=== PATIENT | male | born 1970 | race Caucasian/White ===

== ENCOUNTER 2016-12-23 21:18 | Emergency (ER) | payer OTHER ==
[~2016-12-23] VITALS: Ht 188 cm; Wt 85.2 kg
[2016-12-23 21:18] VITALS: BP 143/104
[~2016-12-23 21:18] MED LIST: HYDR1TAB10 PO; RANI150T6 PO
--- NOTE | 2016-12-23 22:08 | PHYS DOC ---
General Chief Complaint: ABDOMINAL PAIN Stated Complaint: PAIN UNDER STERNUM Time Seen by MD: 22:06 Source: patient Exam Limitations: no limitations Problems: History of Present Illness Initial Comments Pt is 46/M to ED c/o abdominal pain. Pt states he is here for exacerbation of chronic condition. States he has had this epigastric discomfort described as burning intermittently in past and has been extensively worked up. Sx have been localized to his GI tract, pt saw Dr Peralta as outpatient and Dr Peralta ordered upper GI study. Pt states this study has been scheduled twice in past but each time pt has fallen ill and has not made those appointments. Pt states he had some spicy pasta yesterday, since then his burning sx have worsened from baseline currently 04/18. +belching/metallic taste, no n/v/d no unexplained weight loss or difficulty swallowing. Pt taking pepcid, not following GERD precautions. Timing/Duration: 24 hours Severity: severe Modifying Factors: worse with eating Associated Symptoms: other Allergies: Coded Allergies: No Known Drug Allergies (Unverified , 06/25/14) Past Medical History Medical History: other (anxiety, GERD, HLP, HTN) Surgical History: noncontributory (cervical fusion), other Social History Smoker: quit less than 1 year Alcohol: none Drugs: marijuana Review of Systems Constitutional: denies chills, denies fever, denies malaise Respiratory: denies cough, denies shortness of breath Cardiovascular: denies chest pain, denies palpitations, denies syncope Gastrointestinal: see HPI Genitourinary: denies dysuria, denies frequency, denies hematuria Musculoskeletal: denies back pain, denies joint swelling, denies neck pain Psychiatric/Neurological: denies headache, denies numbness, denies paresthesia Hematologic/Lymphatic: denies blood clots, denies easy bleeding, denies easy bruising Physical Exam General Appearance: WD/WN, no apparent distress Eyes: bilateral eye EOMI, bilateral eye PERRL, bilateral eye normal inspection Ear, Nose, Throat: hearing grossly normal, normal ENT inspection, normal pharynx Neck: non-tender, supple Respiratory: normal breath sounds, no respiratory distress Cardiovascular: normal peripheral pulses, regular rate, rhythm Gastrointestinal: normal bowel sounds, soft (ND, mild epigastric TTP no r/g/ mass, neg mcburney/carrion) Rectal: deferred Back: no CVA tenderness, no vertebral tenderness Extremities: non-tender, normal inspection Neurologic/Psychiatric: management trainee II-XII nml as tested, no motor/sensory deficits, alert, normal mood/affect, oriented x 3 Skin: normal color, warm/dry Orders, Labs, Meds EKG: NSR 74 bpm, no STEMI GI cocktail with improvement sx. I discussed need for adherence with Dr Peralta instructions. Continue current meds. Pt expressed agreement/understanding with treatment plan. Departure Time of Disposition: 22:06 Disposition: 01 HOME, SELF-CARE Diagnosis: GERD gastritis Condition: GOOD Patient Instructions: Diet for Gastroesophageal Reflux Disease, Adult, Easy-to- Read, Gastroesophageal Reflux Disease, Adult, [id number] Additional Instructions: Continue GERD precautions (see handouts). Continue pepcid. Schedule upper GI per Dr Peralta, call tomorrow to schedule. Follow up with your doctor next week. Return to ED with new or changing symptoms. HARINDER [place] DO Dec 23, 2016 22:08
[2016-12-23] MEDS ORDERED: SUCR1TAB29 PO (22:09)
[2016-12-23] MEDS ORDERED: LIDO:MAALOX 1:1 20 ML SINGLE DOSE PO ONE (22:30)
--- NOTE | 2016-12-24 00:48 | EKG ---
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
== END 2016-12-23 22:21 | disposition home or self-care (01) ==
LOC: ER 21:18
DX: K21.9 Gastro-esophageal reflux disease without esophagitis (principal); K29.70 Gastritis, unspecified, without bleeding; E78.00 Pure hypercholesterolemia, unspecified; I10 Essential (primary) hypertension; F12.10 Cannabis abuse, uncomplicated; Z87.891 Personal history of nicotine dependence
CPT/HCPCS: 93005; 99283-25

== ENCOUNTER 2016-12-28 11:08 | Emergency (ER) | payer OTHER ==
[~2016-12-28 11:08] MED LIST changes: +SUCR1TAB29 PO
[2016-12-28 11:15] VITALS: BP 141/101
--- NOTE | 2016-12-28 11:49 | ED.ADGEN ---
Past History Past Medical History: GERD, High Cholesterol, Hypertension Past Surgical History: Other Smoking: Cigarettes, Quit Less Than 1 Year Alcohol Use: Occasionally Drug Use: None Adult General Chief Complaint Chief Complaint epigastric pain HPI HPI Patient is a 46 year old male who presents with epigastric pain since yesterday evening, slow in onset, reoccurring symptoms for last several days. Pt has been battling these symptoms for a long period of time, with EGD planned multiple times but frequently cancelled by pt because he "doesn't like doctors" . Pt has EGD scheduled for today at 4:30, but pt thought maybe he could just come to the ED to have this performed. He has not attempted any symptom controlling medication. He did take his Lisinopril today. No nausea or vomiting, no change in bowel movements. + flatus. No bloody stools reported. Pt reports GI cocktail normally works for his pain. Review of Systems Review of Systems Constitutional: Denies fever or chills [] Eyes: Denies change in visual acuity, redness, or eye pain [] HENT: Denies nasal congestion or sore throat [] Respiratory: Denies cough or shortness of breath [] Cardiovascular: denies chest pain GI: per hpi : Denies dysuria or hematuria [] Musculoskeletal: Denies back pain or joint pain [] Integument: Denies rash or skin lesions [] Neurologic: Denies headache, focal weakness or sensory changes [] Endocrine: Denies polyuria or polydipsia [] Current Medications Current Medications Current Medications Medications (Trade) Dose Ordered Sig/Laquita Start Time Stop Time Status Last Admin Dose Admin Multi-Ingredient Mouthwash/Gargle (Gi Cocktail) 20 ml 1X ONCE 12/28/16 12:00 12/28/16 12:01 12/28/16 11:37 20 ML Allergies Allergies Allergies Coded Allergies Type Severity Reaction Last Updated Verified No Known Drug Allergies 06/25/14 No Physical Exam Physical Exam Constitutional: Well developed, well nourished, no acute distress, non-toxic appearance. [] HENT: Normocephalic, atraumatic, bilateral external ears normal, oropharynx moist, no oral exudates, nose normal. [] Eyes: PERRLA, EOMI, conjunctiva normal, no discharge. [] Neck: Normal range of motion, no tenderness, supple, no stridor. [] Cardiovascular:Heart rate regular with regular rhythm, no murmur [] Lungs & Thorax: Bilateral breath sounds clear to auscultation, no wheeze, crackles or rhonchi Abdomen: Bowel sounds normal, soft, no tenderness, no masses, no pulsatile masses, no guarding or peritoneal signs, nondistended. Skin: Warm, dry, no erythema, no rash. [] Back: No tenderness, no CVA tenderness. [] Extremities: No tenderness, no cyanosis, no clubbing, ROM intact, no edema. [] Neurologic: Alert and oriented X 3, normal motor function, normal sensory function, no focal deficits noted. [] Psychologic: Affect normal, judgement normal, mood normal. [] Current Patient Data Vital Signs Vital Signs Date Time Temp Pulse Resp B/P Pulse Ox O2 Delivery O2 Flow Rate FiO2 12/28/16 11:15 97.7 80 20 95 Room Air EKG EKG [] Radiology/Procedures Radiology/Procedures [] Course & Med Decision Making Course & Med Decision Making Pertinent Labs and Imaging studies reviewed. (See chart for details) pt given a GI cocktail. He does not have signs/sx of perforation, no ttp over pancreas or liver/GB. I encouraged pt to keep his appointment this afternoon. Final Impression Final Impression GERD[] Problems: Dragon Disclaimer Dragon Disclaimer This electronic medical record was generated, in whole or in part, using a voice recognition dictation system. MARIETTA IBARRA MD Dec 28, 2016 11:49
[2016-12-28] MEDS ORDERED: LIDO:MAALOX 1:1 20 ML SINGLE DOSE PO ONE (12:00)
== END 2016-12-28 11:45 | disposition home or self-care (01) ==
LOC: ER 11:08
DX: K21.9 Gastro-esophageal reflux disease without esophagitis (principal); E78.00 Pure hypercholesterolemia, unspecified; I10 Essential (primary) hypertension; F17.210 Nicotine dependence, cigarettes, uncomplicated
CPT/HCPCS: 99282

== ENCOUNTER 2017-02-17 19:37 | Emergency (ER) | payer SELFPAY ==
[~2017-02-17] VITALS: Ht 188 cm; Wt 87.2 kg
[2017-02-17 19:37] VITALS: BP 150/91
[~2017-02-17 19:37] MED LIST changes: -SUCR1TAB29 PO; +SUCR1TAB35 PO
[2017-02-17] MEDS ORDERED: LIDOCAINE 1% Multi-Dose 20 ML VIAL. ONE (19:49)
[2017-02-17] MEDS ORDERED: IBUP600T16 PO (20:07)
[2017-02-17] MEDS ORDERED: HYDR-2678 PO (20:07)
[2017-02-17] MEDS ORDERED: SULF1TAB24 PO (20:07)
--- NOTE | 2017-02-17 20:07 | PHYS DOC ---
Past History Past Medical History: GERD, High Cholesterol, Hypertension Past Surgical History: Other Smoking: Cigarettes, Quit Less Than 1 Year Alcohol Use: Occasionally Drug Use: None Adult General Chief Complaint Chief Complaint: ABSCESS HPI HPI Patient is a 46-year-old gentleman who presents here today secondary to an abscess that he noted on his back. Patient reports that the abscesses been there for greater than one week and has been getting bigger and more tender. Patient denies any other past medical history. Patient denies any history of hypertension diabetes liver longer kidney pals. Patient denies any alcohol or drugs. Patient has any fevers shakes chills nausea vomiting diarrhea chest pain or shortness of breath. Patient reports initial onset of myalgias and malaise earlier today. Patient's physical exam was significant for a large abscess to his mid scapular region and his back. Approximately at the level of T4-T5 and the abscess was approximately 6 x 6 cm with a purulent head. It was tender to palpation. There is some mild erythema. There is some mild warmth. Patient is nontoxic appearing. Patient is alert awake oriented 3 and in good spirits. Patient's lungs were clear without any wheezing rales or rhonchi. Indication: Skin abscess. Procedure: The patient was positioned appropriately and the skin over the incision site was Betadine. Local anesthesia was 1% lidocaine 3 mL.. An incision was then made over the abscess to his mid scapular region. And copious amounts of purulent sebaceous cheesy material was expressed. Loculations were broken. The drainage cavity was then packed with 1 inch gauze. The patients tetanus status up-to-date. The patient tolerated the procedure well. Complications: None Assessment and plan: This is a 46-year-old gentleman who presents to the ER secondary to a skin abscess. Abscess was draining in the ER. The patient was given adequate analgesia during the procedure. The patient was discharged home on Bactrim DS, Motrin, Lortab. Patient was instructed to follow-up with his doctor in 2 days for packing change. If he was unable see his doctor in 2 days he was instructed to return to the ER for further evaluation of the packing and for possible removal and repacking. Review of Systems Review of Systems Constitutional: Denies fever or chills [] Eyes: Denies change in visual acuity, redness, or eye pain [] HENT: Denies nasal congestion or sore throat [] All other review systems are negative except as documented in the history of present illness portion. Current Medications Current Medications Current Medications Medications (Trade) Dose Ordered Sig/Laquita Start Time Stop Time Status Last Admin Dose Admin Lidocaine HCl 20 ml STK-MED ONCE 02/17/17 19:49 02/17/17 19:50 DC Allergies Allergies Allergies Coded Allergies Type Severity Reaction Last Updated Verified No Known Drug Allergies 06/25/14 No Physical Exam Physical Exam Constitutional: Well developed, well nourished, no acute distress, non-toxic appearance. [] HENT: Normocephalic, atraumatic, bilateral external ears normal, oropharynx moist, no oral exudates, nose normal. [] Eyes: PERRLA, EOMI, conjunctiva normal, no discharge. [] Neck: Normal range of motion, no tenderness, supple, no stridor. [] Cardiovascular:Heart rate regular rhythm, Lungs & Thorax: Bilateral breath sounds clear to auscultation [] Abdomen: Bowel sounds normal, soft, no tenderness, no masses, no pulsatile masses. [] Skin: Warm, dry, no erythema, no rash. [] Back: See above. Extremities: No tenderness, no cyanosis, no clubbing, ROM intact, no edema. [] Neurologic: Alert and oriented X 3, normal motor function, normal sensory function, no focal deficits noted. [] Psychologic: Affect normal, judgement normal, mood normal. [] EKG EKG [] Radiology/Procedures Radiology/Procedures [] Course & Med Decision Making Course & Med Decision Making Pertinent Labs and Imaging studies reviewed. (See chart for details) [] Dragon Disclaimer Dragon Disclaimer This chart was dictated in whole or in part using Voice Recognition software in a busy, high-work load, and often noisy Emergency Department environment. It may contain unintended and wholly unrecognized errors or omissions. Departure Departure: Impression: Primary Impression: Skin abscess Disposition: 01 HOME, SELF-CARE Condition: IMPROVED Referrals: LUI JAIN (PCP) Patient Instructions: Abscess, Incision and Drainage, Care After Additional Instructions: Please follow up with her family doctor or return to the ER in 2 days for a packing change. Return to the ER if they have any new or concerning complaints. Scripts Sulfamethoxazole/Trimethoprim (BACTRIM DS TABLET) 1 Each Tablet 2 TAB PO BID, #40 TAB Prov: ISACC RIDDLE MD 02/17/17 Hydrocodone/Acetaminophen (Lortab 5-325 mg Tablet) 1 Each Tablet 1 TAB PO PRN Q6HRS Y for PAIN, #12 TAB 0 Refills Prov: ISACC RIDDLE MD 02/17/17 Ibuprofen (IBUPROFEN) 600 Mg Tablet 600 MG PO QID Y for PAIN, #20 Prov: ISACC RIDDLE MD 02/17/17 Problem Qualifiers Primary Impression: Skin abscess Site of cutaneous abscess: other site Qualified Codes: L02.818 - Cutaneous abscess of other sites ISACC RIDDLE MD February 17, 2017 20:07
[2017-02-17] MEDS ORDERED: HYDROcodone/APAP 5/325MG 1 TAB TABLET PO ONE (20:30)
[2017-02-17] MEDS ORDERED: LIDOCAINE 1% Multi-Dose 20 ML VIAL. IJ ONE (20:30)
[2017-02-17] MEDS ORDERED: SMZ/TMP 800/160MG TABLET. PO ONE (20:30)
[2017-02-17] MEDS ORDERED: IBUPROFEN 600 MG TABLET. PO ONE (20:30)
== END 2017-02-17 20:12 | disposition home or self-care (01) ==
LOC: ER 19:37
DX: L02.212 Cutaneous abscess of back [any part, except buttock and flank] (principal); K21.9 Gastro-esophageal reflux disease without esophagitis; I10 Essential (primary) hypertension; E78.00 Pure hypercholesterolemia, unspecified; Z87.891 Personal history of nicotine dependence
CPT/HCPCS: 99284-25

== ENCOUNTER 2017-02-28 09:44 | Emergency (ER) | payer OTHER ==
[~2017-02-28] VITALS: Ht 188 cm; Wt 87.2 kg
[~2017-02-28 09:44] MED LIST changes: +HYDR-2678 PO; +IBUP600T16 PO; +SULF1TAB24 PO
[2017-02-28 10:07] VITALS: BP 167/91
--- NOTE | 2017-03-01 08:52 | PHYS DOC ---
Past History Past Medical History: Anxiety, GERD, High Cholesterol, Hypertension Past Surgical History: Other Smoking: Cigarettes, Quit Less Than 1 Year Alcohol Use: Occasionally Drug Use: Marijuana Adult General Chief Complaint Chief Complaint: SHORTNESS OF BREATH [facility] LATE ENTRY 0846 03/01/17 This 46-year-old man presents with feeling of breathlessness he has been very anxious about a lot of things he states he's had intermittent short of breath with_on for the past 2 days without cough or fever. He states that he is usually at rest when the episodes began he does not smoke cigarettes he does smoke marijuana occasionally and denies any pain he was evaluated about 2 weeks ago for an abscess on his back which is healing well and he really wanted to check on that but then thought he would talk to us about his feeling breathless at times. Review of Systems Review of Systems late entry 0803/01/17 Constitutional: Denies fever or chills [] Eyes: Denies change in visual acuity, redness, or eye pain [] HENT: Denies nasal congestion or sore throat [] Respiratory: Denies cough or shortness of breath [] Cardiovascular: No additional information not addressed in HPI [] GI: Denies abdominal pain, nausea, vomiting, bloody stools or diarrhea [] : Denies dysuria or hematuria [] Musculoskeletal: Denies back pain or joint pain [] Integument: Denies rash or skin lesions [] Neurologic: Denies headache, focal weakness or sensory changes [] Endocrine: Denies polyuria or polydipsia [] Allergies Allergies Allergies Coded Allergies Type Severity Reaction Last Updated Verified No Known Drug Allergies 06/25/14 No Physical Exam Physical Exam Late entry 0847 03/01/17 Constitutional: Well developed, well nourished, no acute distress, non-toxic appearance. He does seem somewhat anxious HENT: Normocephalic, atraumatic, bilateral external ears normal, oropharynx moist, no oral exudates, nose normal. [] Eyes: PERRLA, EOMI, conjunctiva normal, no discharge. [] Neck: Normal range of motion, no tenderness, supple, no stridor. [] Cardiovascular:Heart rate regular rhythm, no murmur [] Lungs & Thorax: Bilateral breath sounds clear to auscultation lungs are entirely clear to auscultation Abdomen: Bowel sounds normal, soft, no tenderness, no masses, no pulsatile masses. [] Skin: Warm, dry, no erythema, no rash. [] Back: No tenderness, no CVA tenderness. [] Extremities: No tenderness, no cyanosis, no clubbing, ROM intact, no edema. [] Neurologic: Alert and oriented X 3, normal motor function, normal sensory function, no focal deficits noted. [] Psychologic: Affect normal, judgement normal, mood normal. He does seem anxious Current Patient Data Vital Signs Vital Signs Date Time Temp Pulse Resp B/P (MAP) Pulse Ox O2 Delivery O2 Flow Rate FiO2 02/28/17 10:07 97.9 74 16 98 EKG EKG [] Radiology/Procedures Radiology/Procedures [] Impressions: Late entry 0849 03/01/17 Anxiety Course & Med Decision Making Course & Med Decision Making Pertinent Labs and Imaging studies reviewed. (See chart for details) late entry 0849 03/01/17 I talked with this patient at length regarding his history and physical which were all entirely normal I explained to him that I felt this was anxiety anxiety and I felt that everything looked fine on examination and I reassured him. The patient seemed very relaxed and understanding [] Dragon Disclaimer Dragon Disclaimer This chart was dictated in whole or in part using Voice Recognition software in a busy, high-work load, and often noisy Emergency Department environment. It may contain unintended and wholly unrecognized errors or omissions. Departure Departure: Impression: Primary Impression: Anxiety Disposition: 01 HOME, SELF-CARE Condition: IMPROVED Patient Instructions: Anxiety and Panic Attacks, [id number] LEIGH ANN JORGE MD March 01, 2017 08:51
== END 2017-02-28 10:43 | disposition home or self-care (01) ==
LOC: ER 09:44
DX: F41.9 Anxiety disorder, unspecified (principal); I10 Essential (primary) hypertension; E78.00 Pure hypercholesterolemia, unspecified; K21.9 Gastro-esophageal reflux disease without esophagitis; F17.210 Nicotine dependence, cigarettes, uncomplicated; F12.10 Cannabis abuse, uncomplicated
CPT/HCPCS: 99281; 99284

== ENCOUNTER 2017-07-04 17:49 | Emergency (ER) | payer SELFPAY ==
[2017-07-04] MEDS ORDERED: KETOROLAC 30 MG/ML VIAL. IM ONE (19:10)
[2017-07-04] MEDS ORDERED: amLODIPine BESYLATE 5 MG TABLET PO ONE (19:10)
[2017-07-04] MEDS ORDERED: AMLO10TA4 PO (19:23)
[2017-07-04] MEDS ORDERED: NAPR500T3 PO (19:23)
--- NOTE | 2017-07-04 19:23 | PHYS DOC ---
Past History Past Medical History: Anxiety, GERD, High Cholesterol, Hypertension Past Surgical History: Other Smoking: Cigarettes, Quit Less Than 1 Year Alcohol Use: Occasionally Drug Use: Marijuana Adult General Chief Complaint Chief Complaint: MULTIPLE COMPLAINTS HPI HPI Patient is a 46-year-old gentleman with multiple medical problems who presents to the ER today complaining of left ear, neck, shoulder pain for approximately 10 years. Patient reports that he used to be on heavy narcotic medications that he is no longer requiring to take. Patient denies any fevers shakes chills nausea vomiting diarrhea chest pain shortness of breath cough cold rhinorrhea. Patient denies any other new symptomatology. Patient reports that this is a chronic condition for him. He is here because today his blood pressure was elevated at home and his mother and sister wants to study come here to get assistance with his hypertension. It appears that the true reason the patient is here for his chronic pain but for assistance with his elevated blood pressure. Patient reports that he has been noncompliant with his blood pressure medication for approximately 3 months now secondary to insurance issues. Patient denies any headaches, chest pain, shortness of breath, double vision, blurred vision, weakness his upper or lower 70s, strokelike symptoms. Patient is requesting assistance at this time with prescriptions with for his blood pressure. Review of systems: Constitutional: Denies fever or chills Eyes: Denies change in visual acuity, redness, or eye pain HENT: Denies nasal congestion or sore throat All other review systems are negative except as documented in the history of present illness portion. Physical exam: Constitutional: Well developed, well nourished, no acute distress, non-toxic appearance. HENT: Normocephalic, atraumatic, bilateral external ears normal, oropharynx moist, no oral exudates, nose normal. Eyes: PERRLA, EOMI, conjunctiva normal, no discharge. Neck: Normal range of motion, no tenderness, supple, no stridor. Cardiovascular:Heart rate regular rhythm, Lungs & Thorax: Bilateral breath sounds clear to auscultation Abdomen: Bowel sounds normal, soft, no tenderness, no masses, no pulsatile masses. Skin: Warm, dry, no erythema, no rash. Back: No tenderness, no CVA tenderness. Extremities: No tenderness, no cyanosis, no clubbing, ROM intact, no edema. Neurologic: Alert and oriented X 3, normal motor function, normal sensory function, no focal deficits noted. Psychologic: Affect normal, judgement normal, mood normal. Assessment and plan This is a 46-year-old gentleman who presents here today complaining of chronic ear and neck pain that he is requesting assistance with pain medicines for. Patient reports that he has been on long-term narcotics in the past and his mother was afraid that he would have issues from the narcotics. Patient reports that he is no longer taking any narcotic pain medicines for it. Patient will be given Toradol IM and a prescription for Naprosyn will be instructed to follow- up with his primary care physician to assist him with his chronic condition. Patient also with hypertension. Patient presents with elevated blood pressure without evidence of end organ damage. Patient has a chronic condition that he has not been treating himself with secondary to insurance issues. Patient be given a prescription for Norvasc 10 mg daily and will be instructed to follow- up with primary care or care physician for further evaluation and treatment of his chronic hypertension. Patient was instructed on the signs and symptoms of hypertensive emergency and will return to the ER if you have any further concerns or issues. Current Medications Current Medications Current Medications Medications (Trade) Dose Ordered Sig/Laquita Start Time Stop Time Status Last Admin Dose Admin Amlodipine Besylate (Norvasc) 10 mg 1X ONCE 07/04/17 19:10 07/04/17 19:11 DC 07/04/17 19:10 10 MG Ketorolac Tromethamine (Toradol) 30 mg 1X ONCE 07/04/17 19:10 07/04/17 19:11 DC 07/04/17 19:10 30 MG Allergies Allergies Allergies Coded Allergies Type Severity Reaction Last Updated Verified No Known Drug Allergies 06/25/14 No Current Patient Data Vital Signs Vital Signs Date Time Temp Pulse Resp B/P (MAP) Pulse Ox O2 Delivery O2 Flow Rate FiO2 07/04/17 19:10 90 171/109 EKG EKG [] Radiology/Procedures Radiology/Procedures [] Course & Med Decision Making Course & Med Decision Making Pertinent Labs and Imaging studies reviewed. (See chart for details) [] Dragon Disclaimer Dragon Disclaimer This chart was dictated in whole or in part using Voice Recognition software in a busy, high-work load, and often noisy Emergency Department environment. It may contain unintended and wholly unrecognized errors or omissions. Departure Departure: Impression: Primary Impression: Torticollis Additional Impressions: Chronic pain Hypertension Disposition: 01 HOME, SELF-CARE Condition: IMPROVED Referrals: LUI JAIN (PCP) Patient Instructions: Chronic Pain Management, Hypertension Additional Instructions: Please make sure he follow up with your family doctor or the clinics to further evaluate your blood pressure and to manage adjusting her medications.. Scripts Amlodipine Besylate (NORVASC) 10 Mg Tablet 1 TAB PO DAILY, #30 TAB 5 Refills Prov: ISACC RIDDLE MD 07/04/17 Naproxen (NAPROXEN) 500 Mg Tablet 1 TAB PO BID, #20 TAB Prov: ISACC RIDDLE MD 07/04/17 Problem Qualifiers ISACC RIDDLE MD Jul 04, 2017 19:23
[2017-07-04 19:30] VITALS: BP 131/75
== END 2017-07-04 19:30 | disposition home or self-care (01) ==
LOC: ER 17:49
DX: M43.6 Torticollis (principal); G89.29 Other chronic pain; E78.00 Pure hypercholesterolemia, unspecified; I10 Essential (primary) hypertension; F17.210 Nicotine dependence, cigarettes, uncomplicated; K21.9 Gastro-esophageal reflux disease without esophagitis; Z91.14 Patient's other noncompliance with medication regimen
CPT/HCPCS: 96372; 99283; J1885

== ENCOUNTER 2017-07-08 22:16 | Emergency (ER) | payer MEDICAID, OTHER ==
[~2017-07-08] VITALS: Ht 188 cm; Wt 87.2 kg
[~2017-07-08 22:16] MED LIST changes: +AMLO10TA4 PO; +NAPR500T3 PO
[2017-07-08 22:20] VITALS: BP 168/100
[2017-07-08] MEDS ORDERED: ASPIRIN 81 MG TAB.CHEW ONE (22:30)
--- NOTE | 2017-07-08 22:36 | EKG ---
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
[2017-07-08 22:56] LABS: BASO # 0.1 x10^3/uL (0.0-0.2); BASO % 1 % (0-3); EOS # 0.1 x10^3/uL (0.0-0.7); EOS % 1 % (0-3); HEMOGLOBIN 16.6 g/dL (13.0-17.5); LYMPH % 32 % (24-48); MEAN CORPUSCULAR HEMOGLOBIN 30 pg (25-35); MEAN CORPUSCULAR HGB CONC 35 g/dL (31-37); MEAN CORPUSCULAR VOLUME 86 fL (79-100); MONO # 0.7 x10^3/uL (0.0-1.1); MONO % 8 % (0-9); NEUT # 5.6 x10^3uL (1.8-7.7); NEUT % 59 % (31-73); PLATELET COUNT 290 x10^3/uL (140-400); RED BLOOD COUNT 5.56 x10^6/uL (4.30-5.70); RED CELL DISTRIBUTION WIDTH 13.4 % (11.5-14.5); WHITE BLOOD COUNT 9.4 x10^3/uL (4.0-11.0)
[2017-07-08 23:02] LABS: BARBITURATES NEG (NEG); BENZODIAZEPINES NEG (NEG); CANNABINOIDS POS (NEG); COCAINE NEG (NEG); METHADONE NEG (NEG); OPIATES POS (NEG); PHENCYCLIDINE NEG (NEG)
[2017-07-08 23:04] LABS: AMPHETAMINE/METHAMPHETAMINE NEG (NEG)
[2017-07-08 23:06] LABS: ALBUMIN 4.7 g/dL (3.4-5.0); ALBUMIN/GLOBULIN RATIO 1.3 (1.0-1.7); ALK PHOS 98 U/L (46-116); ALT (SGPT) 20 U/L (16-63); ANION GAP 12 (6-14); AST (SGOT) 12 U/L (15-37); BLOOD UREA NITROGEN 19 mg/dL (8-26); BUN/CREATININE RATIO 17 (6-20); CALCIUM 9.4 mg/dL (8.5-10.1); CARBON DIOXIDE 25 mmol/L (21-32); CHLORIDE 101 mmol/L (98-107); CREATININE 1.1 mg/dL (0.7-1.3); GFR 72.7; GLUCOSE 109 mg/dL (70-99); POTASSIUM 3.4 mmol/L (3.5-5.1); SODIUM 138 mmol/L (136-145); TOTAL PROTEIN 8.4 g/dL (6.4-8.2)
[2017-07-08 23:08] LABS: TOTAL BILIRUBIN < 0.2 mg/dL (0.2-1.0)
--- NOTE | 2017-07-08 23:21 | ED.ADGEN ---
Past History Past Medical History: Anxiety, Depression, GERD, Hypertension, Other Past Surgical History: Other Smoking: Cigarettes, Quit Less Than 1 Year Alcohol Use: None Drug Use: Marijuana Adult General Chief Complaint Chief Complaint Chest pain, anxiety HPI HPI Patient is a 46-year-old male with history of chronic neck back and shoulder pain, anxiety, hypertension and acid reflux who presents to the emergency department this evening with shoulder, neck and chest pain. Symptoms began this evening an hour after eating dinner. Denies exertional chest pain. Patient states he ate fried chicken and felt disoriented reflux and then took a Zantac switch did not help. He then then checked his blood pressure and noted that it was elevated. Patient was department earlier this week for chronic neck and back pain and hypertension. Patient was restarted on his Norvasc which he has been taking for the past 3 days. Patient states he is recently required healthcare insurance has not seen a regular doctor in the past several months. Reports a negative stress test 2 years ago. Reports discontinuing smoking 2 years ago and smokes occasional marijuana. Denies abdominal pain, leg pain, swelling. No history of CAD, CHF, DVT or PE. Strong family history of CAD. Patient had CABG at age 46. Review of Systems Review of Systems Review symptoms as per history of present illness. All other review of symptoms negative. Current Medications Current Medications Current Medications Medications (Trade) Dose Ordered Sig/Laquita Start Time Stop Time Status Last Admin Dose Admin Aspirin (Children'S Aspirin) 81 mg STK-MED ONCE 07/08/17 22:30 07/08/17 22:31 DC Clonidine HCl (Catapres) 0.1 mg 1X ONCE 07/09/17 00:00 07/09/17 00:00 DC Allergies Allergies Allergies Coded Allergies Type Severity Reaction Last Updated Verified No Known Drug Allergies 06/25/14 No Physical Exam Physical Exam Constitutional: Well developed, well nourished, no acute distress, non-toxic appearance. [] HENT: Normocephalic, atraumatic, bilateral external ears normal, oropharynx moist, no oral exudates, nose normal. [] Eyes: PERRLA, EOMI, conjunctiva normal, no discharge. [] Neck: Normal range of motion, no tenderness, supple, no stridor. [] Cardiovascular:Heart rate regular rhythm, no murmur [] Lungs & Thorax: Bilateral breath sounds clear to auscultation [] Abdomen: Bowel sounds normal, soft, no tenderness. [] Skin: Warm, dry, no erythema, no rash. [] Back: No tendernes. [] Extremities: No tenderness, no cyanosis, no clubbing, ROM intact, no edema. [] Neurologic: Alert and oriented X 3, normal motor function, normal sensory function, no focal deficits noted. [] Psychologic: Affect anxious, tremulous.[] Current Patient Data Vital Signs Vital Signs Date Time Temp Pulse Resp B/P (MAP) Pulse Ox O2 Delivery O2 Flow Rate FiO2 07/08/17 23:23 78 20 141/80 (100) 98 Room Air 07/08/17 22:20 98.1 Lab Results Laboratory Tests Test 07/08/17 22:20 07/08/17 23:00 White Blood Count 9.4 x10^3/uL (4.0-11.0) Red Blood Count 5.56 x10^6/uL (4.30-5.70) Hemoglobin 16.6 g/dL (13.0-17.5) Hematocrit 48.0 % (39.0-53.0) Mean Corpuscular Volume 86 fL (79-100) Mean Corpuscular Hemoglobin 30 pg (25-35) Mean Corpuscular Hemoglobin Concent 35 g/dL (31-37) Red Cell Distribution Width 13.4 % (11.5-14.5) Platelet Count 290 x10^3/uL (140-400) Neutrophils (%) (Auto) 59 % (31-73) Lymphocytes (%) (Auto) 32 % (24-48) Monocytes (%) (Auto) 8 % (0-9) Eosinophils (%) (Auto) 1 % (0-3) Basophils (%) (Auto) 1 % (0-3) Neutrophils # (Auto) 5.6 x10^3uL (1.8-7.7) Lymphocytes # (Auto) 3.0 x10^3/uL (1.0-4.8) Monocytes # (Auto) 0.7 x10^3/uL (0.0-1.1) Eosinophils # (Auto) 0.1 x10^3/uL (0.0-0.7) Basophils # (Auto) 0.1 x10^3/uL (0.0-0.2) Sodium Level 138 mmol/L (136-145) Potassium Level 3.4 mmol/L (3.5-5.1) L Chloride Level 101 mmol/L (98-107) Carbon Dioxide Level 25 mmol/L (21-32) Anion Gap 12 (6-14) Blood Urea Nitrogen 19 mg/dL (8-26) Creatinine 1.1 mg/dL (0.7-1.3) Estimated GFR (Cockcroft-Gault) 72.7 BUN/Creatinine Ratio 17 (6-20) Glucose Level 109 mg/dL (70-99) H Calcium Level 9.4 mg/dL (8.5-10.1) Total Bilirubin < 0.2 mg/dL (0.2-1.0) L Aspartate Amino Transferase (AST) 12 U/L (15-37) L Alanine Aminotransferase (ALT) 20 U/L (16-63) Alkaline Phosphatase 98 U/L (46-116) Troponin I Quantitative < 0.017 ng/mL (0-0.055) Total Protein 8.4 g/dL (6.4-8.2) H Albumin 4.7 g/dL (3.4-5.0) Albumin/Globulin Ratio 1.3 (1.0-1.7) Urine Opiates Screen Pos (NEG) Urine Methadone Screen Neg (NEG) Urine Barbiturates Neg (NEG) Urine Phencyclidine Screen Neg (NEG) Urine Amphetamine/Methamphetamine Neg (NEG) Urine Benzodiazepines Screen Neg (NEG) Urine Cocaine Screen Neg (NEG) Urine Cannabinoids Screen Pos (NEG) Urine Ethyl Alcohol Neg (NEG) Urine Collection Type Unknown Urine Color Straw Urine Clarity Clear Urine pH 5.5 Urine Specific [place] 1.010 Urine Protein Neg (NEG-TRACE) Urine Glucose (UA) Neg mg/dL (NEG) Urine Ketones (Stick) Neg mg/dL (NEG) Urine Blood Neg (NEG) Urine Nitrite Neg (NEG) Urine Bilirubin Neg (NEG) Urine Urobilinogen Dipstick 0.2 mg/dL (0.2 mg/dL) Urine Leukocyte Esterase Neg (NEG) Urine RBC 0 /HPF (0-2) Urine WBC 0 /HPF (0-4) Urine Squamous Epithelial Cells Occ /LPF Urine Amorphous Sediment Present /HPF Urine Bacteria Few /HPF (0-FEW) EKG EKG [EKG: Sinus rhythm, rate 90, no acute ST-T wave changes.] Radiology/Procedures Radiology/Procedures [Chest x-ray: No acute cardiopulmonary disease.] Course & Med Decision Making Course & Med Decision Making Pertinent Labs and Imaging studies reviewed. (See chart for details) [Symptoms consistent with GERD, anxiety. EKG, troponin negative. Recommend supportive care with outpatient stress testing with PCP. Return precautions reviewed.] Final Impression Final Impression [1. Chest pain- nonspecific] Problems: Dragon Disclaimer Dragon Disclaimer This electronic medical record was generated, in whole or in part, using a voice recognition dictation system. MAURIZIO GARCIA DO Jul 08, 2017 23:21
[2017-07-08 23:23] LABS: BILIRUBIN,URINE NEG (NEG); CLARITY,URINE CLEAR; COLOR,URINE STRAW; GLUCOSE,URINE NEG (NEG)
[2017-07-08 23:24] LABS: AMORPHOUS SEDIMENT,UR PRESENT /HPF; BACTERIA,URINE FEW /HPF (0-FEW); NITRITE,URINE NEG (NEG); RBC,URINE 0 /HPF (0-2); SQUAMOUS EPITHELIAL CELL,UR OCC /LPF; UROBILINOGEN,URINE 0.2 mg/dL (0.2 mg/dL); WBC,URINE 0 /HPF (0-4)
[2017-07-09] MEDS ORDERED: cloNIDine HCL 0.1 MG TABLET PO ONE
[2017-07-09] MEDS ORDERED: ASPIRIN 81 MG TAB.CHEW PO ONE (03:45)
--- NOTE | 2017-07-09 08:21 | RAD ---
Portable AP chest. History: Chest pain AP view was taken of the chest. Lungs are clear. Heart is normal in size. There is no pleural effusion. Impression: 1. No acute chest disease.
== END 2017-07-08 23:50 | disposition home or self-care (01) ==
LOC: ER 22:16
DX: R07.89 Other chest pain (principal); M25.519 Pain in unspecified shoulder; M54.2 Cervicalgia; F17.210 Nicotine dependence, cigarettes, uncomplicated; K21.9 Gastro-esophageal reflux disease without esophagitis; I10 Essential (primary) hypertension; F12.10 Cannabis abuse, uncomplicated; F41.9 Anxiety disorder, unspecified
CPT/HCPCS: 36415; 71010; 80053; 80307; 81001; 84484; 85025; 93005; 99285-25; G0479

== ENCOUNTER 2017-09-26 07:58 | Emergency (ER) | payer MEDICAID, OTHER ==
[~2017-09-26] VITALS: Ht 188 cm; Wt 90.7 kg
[~2017-09-26 07:58] MED LIST changes: -NAPR500T3 PO; +NAPR500T4 PO
--- NOTE | 2017-09-26 08:16 | EKG ---
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
[2017-09-26] MEDS ORDERED: ASPIRIN 81 MG TAB.CHEW PO ONE (08:30)
[2017-09-26] MEDS ORDERED: ONDANSETRON PF 4 MG/2 ML VIAL. IV ONE (08:30)
--- NOTE | 2017-09-26 08:35 | PHYS DOC ---
Past History Past Medical History: Anxiety, Depression, GERD, Hypertension, Other Past Surgical History: Other Smoking: Non-smoker, Quit Greater Than 1 Year Alcohol Use: None Drug Use: Marijuana Adult General Chief Complaint Chief Complaint: CHEST PAIN HPI HPI 46-year-old male patient states he ate some homemade food 10 days ago and since then didn't feel good. Patient states he had total of 3 episodes of nonbloody vomiting and 2 episodes of diarrhea a day for 3 days 10 days ago that resolved spontaneously. She complaining of intermittent episodes of right upper quadrant and epigastric sharp pain that last about 1 minute and resolved with with belching or taking Pepcid. Patient rated the pain 5/10 and he states the pain happens several times a day especially after eating. Patient complaining of anorexia and chills without fever, urinary symptoms, constipation. Patient states he woke up at 7 AM this morning.with bilateral chest and substernal burning pain without radiation, shortness of breath, palpitation, focal neuro deficit. Patient complaining of dizziness and nausea associated with the pain and states blood pressure was elevated at the same time. Patient rated his pain 6/10 and states he took Zantac and the pain resolved after an hour. Patient states he has had history of hypertension but does not take any medication. Review of Systems Review of Systems Constitutional: Denies fever or chills [] Eyes: Denies change in visual acuity, redness, or eye pain [] HENT: Denies nasal congestion or sore throat [] Respiratory: Denies cough or shortness of breath [] Cardiovascular: No additional information not addressed in HPI [] GI: Reports abdominal pain, nausea, vomiting, diarrhea [] : Denies dysuria or hematuria [] Musculoskeletal: Denies back pain or joint pain [] Integument: Denies rash or skin lesions [] Neurologic: Denies headache, focal weakness or sensory changes [] Endocrine: Denies polyuria or polydipsia [] All other systems were reviewed and found to be within normal limits, except as documented in this note. Current Medications Current Medications Current Medications Medications (Trade) Dose Ordered Sig/Laquita Start Time Stop Time Status Last Admin Dose Admin Aspirin (Children'S Aspirin) 324 mg 1X ONCE 09/26/17 08:15 09/26/17 08:16 UNV Allergies Allergies Allergies Coded Allergies Type Severity Reaction Last Updated Verified No Known Drug Allergies 06/25/14 No Physical Exam Physical Exam Constitutional: Well nourished, mild distress, non-toxic appearance, anxious. [ ] HENT: Normocephalic, atraumatic, bilateral external ears normal, oropharynx moist, no oral exudates, nose normal. [] Eyes: PERRLA, EOMI, conjunctiva normal, no discharge. [] Neck: Normal range of motion, no tenderness, supple, no stridor. [] Cardiovascular:Heart rate regular rhythm, no murmur [] Lungs & Thorax: Bilateral breath sounds clear to auscultation [] Abdomen: Bowel sounds normal, soft, no tenderness, no masses, no pulsatile masses. [] Skin: Warm, dry, no erythema, no rash. [] Back: No tenderness, no CVA tenderness. [] Extremities: No tenderness, no cyanosis, no clubbing, ROM intact, no edema. [] Neurologic: Alert and oriented X 3, normal motor function, normal sensory function, no focal deficits noted. [] Psychologic: Affect normal, judgement normal, mood normal. [] Current Patient Data Vital Signs Vital Signs Date Time Temp Pulse Resp B/P (MAP) Pulse Ox O2 Delivery O2 Flow Rate FiO2 09/26/17 08:00 98.0 90 22 99 Room Air EKG EKG EKG interpreted by me, EKG at 0806 showed[normal sinus rhythm at rate of 88, no ST and T-wave abnormality, normal HI interval, normal EKG Radiology/Procedures Radiology/Procedures Chest x-ray and gallbladder ultrasound was unremarkable[] Course & Med Decision Making Course & Med Decision Making Pertinent Labs and Imaging studies reviewed. (See chart for details) Evaluation of patient in ER showed 46-year-old male patient with intermittent episodes of nausea and vomiting and diarrhea and epigastric pain that improved but this morning had substernal chest pain. Patient did not have cardiac risk factors except for history of hypertension without taking medication. Patient had unremarkable physical exam and EKG and labs except for mild elevation of lipase and potassium of 3.2. Patient denies drinking alcohol. Chest x-ray and gallbladder ultrasound was unremarkable. Patient did not have chest pain before he was in ER. Patient had blood pressure of 156 at arrival to ER that gradually decreased to 130s. Patient instructed follow-up with his primary care physician regarding elevation of blood pressure and plan to give prescription of lisinopril until he gets to his physician. Plan discharge patient home with diagnosis of mild pancreatitis and noncardiac chest pain and gastroenteritis. [] Dragon Disclaimer Dragon Disclaimer This electronic medical record was generated, in whole or in part, using a voice recognition dictation system. Departure Departure: Impression: Primary Impression: Gastroenteritis Additional Impressions: Gastritis Acute pancreatitis Hypokalemia Cannabis abuse Non-cardiac chest pain Uncontrolled hypertension Disposition: HOME, SELF-CARE (At -[id number]) Condition: IMPROVED Referrals: LUI JAIN (PCP) Patient Instructions: Hypertension, Hypokalemia, Viral Gastroenteritis Additional Instructions: Follow-up with your primary care physician in 2 or 3 days Take liquid diet for 24 hours Return if not getting better Scripts Lisinopril (LISINOPRIL) 10 Mg Tablet 1 TAB PO DAILY, #30 TAB 5 Refills Prov: LILIAN BAXTER MD 09/26/17 Ondansetron (ZOFRAN ODT) 4 Mg Tab.rapdis 1 TAB SL Q8HRS, #15 TAB Prov: LILIAN BAXTER MD 09/26/17 Problem Qualifiers LILIAN BAXTER MD Sep 26, 2017 08:35
--- NOTE | 2017-09-26 08:48 | RAD ---
PROCEDURE: CHEST PA LATERAL CLINICAL INDICATION: chest pain COMPARISON: Previous study from 07/08/2017 FINDINGS: No pneumothorax identified. Cardiac and mediastinal contours unremarkable. No pulmonary consolidation or acute airspace disease. No acute osseous abnormalities identified. IMPRESSION: No pulmonary consolidation or acute airspace disease.
[2017-09-26 09:03] LABS: ALBUMIN 4.4 g/dL (3.4-5.0); ALBUMIN/GLOBULIN RATIO 1.2 (1.0-1.7); ALK PHOS 100 U/L (46-116); ALT (SGPT) 20 U/L (16-63); ANION GAP 13 (6-14); AST (SGOT) 14 U/L (15-37); BLOOD UREA NITROGEN 7 mg/dL (8-26); BUN/CREATININE RATIO 6 (6-20); CALCIUM 9.5 mg/dL (8.5-10.1); CARBON DIOXIDE 25 mmol/L (21-32); CHLORIDE 103 mmol/L (98-107); CREATINE KINASE 106 U/L (39-308); CREATININE 1.1 mg/dL (0.7-1.3); GFR 72.7; GLUCOSE 109 mg/dL (70-99); LIPASE 526 U/L (73-393); MAGNESIUM 1.9 mg/dL (1.8-2.4); POTASSIUM 3.3 mmol/L (3.5-5.1); SODIUM 141 mmol/L (136-145); TOTAL BILIRUBIN 0.6 mg/dL (0.2-1.0)
--- NOTE | 2017-09-26 09:20 | RAD ---
Ultrasound of the right upper quadrant of the abdomen 09/26/2017 Clinical history: Right upper quadrant abdominal pain. Technique: A real-time ultrasound examination of the right upper quadrant of the abdomen was performed. Multiple images were obtained. Findings: The gallbladder is well distended. No gallstones are visualized. The gallbladder wall thickness is within normal limits. No pericholecystic fluid is seen. The common bile duct measures 3 mm in diameter which is within normal limits. The liver is normal in size measuring 15.6 cm in length. No focal abnormality of the liver is seen. The visualized portions of the pancreas and right kidney are within normal limits. No free fluid is seen. Impression: Negative study.
[2017-09-26 09:23] LABS: BASO # 0.1 x10^3/uL (0.0-0.2); BASO % 1 % (0-3); EOS # 0.1 x10^3/uL (0.0-0.7); EOS % 1 % (0-3); HEMATOCRIT 49.4 % (39.0-53.0); LYMPH # 2.7 x10^3/uL (1.0-4.8); LYMPH % 29 % (24-48); MEAN CORPUSCULAR HEMOGLOBIN 30 pg (25-35); MEAN CORPUSCULAR HGB CONC 35 g/dL (31-37); MEAN CORPUSCULAR VOLUME 88 fL (79-100); MONO # 0.8 x10^3/uL (0.0-1.1); MONO % 8 % (0-9); NEUT # 5.6 x10^3uL (1.8-7.7); NEUT % 61 % (31-73); PLATELET COUNT 299 x10^3/uL (140-400); RED BLOOD COUNT 5.62 x10^6/uL (4.30-5.70); WHITE BLOOD COUNT 9.2 x10^3/uL (4.0-11.0)
[2017-09-26 09:38] LABS: AMPHETAMINE/METHAMPHETAMINE NEG (NEG); BARBITURATES NEG (NEG); BENZODIAZEPINES NEG (NEG); CANNABINOIDS POS (NEG); COCAINE NEG (NEG); METHADONE NEG (NEG); OPIATES NEG (NEG); PHENCYCLIDINE NEG (NEG)
[2017-09-26] MEDS ORDERED: LISI10TA2 PO (09:58)
[2017-09-26] MEDS ORDERED: ONDA4TAB10 SL (09:58)
[2017-09-26] MEDS ORDERED: POTASSIUM BICARB 25 MEQ EFFERVESCENT TAB. PO SCH (10:00)
[2017-09-26 10:06] VITALS: BP 132/80
== END 2017-09-26 10:10 | disposition home or self-care (01) ==
LOC: ER 07:58
DX: K52.9 Noninfective gastroenteritis and colitis, unspecified (principal); K29.70 Gastritis, unspecified, without bleeding; K85.90 Acute pancreatitis without necrosis or infection, unspecified; E87.6 Hypokalemia; F12.10 Cannabis abuse, uncomplicated; R07.89 Other chest pain; I10 Essential (primary) hypertension; K21.9 Gastro-esophageal reflux disease without esophagitis; F41.9 Anxiety disorder, unspecified; F32.9 Major depressive disorder, single episode, unspecified; Z87.891 Personal history of nicotine dependence
CPT/HCPCS: 36415; 71020; 76705; 80053; 80307; 82553; 83690; 83735; 83880; 84484; 85025; 85610; 93005; 96374; 99285; J2405; G0479

== ENCOUNTER 2017-10-19 08:08 | Emergency (ER) | payer MEDICAID, OTHER ==
[~2017-10-19 08:08] MED LIST changes: +LISI10TA2 PO; +ONDA4TAB10 SL
[2017-10-19] MEDS ORDERED: IV NORMAL SALINE 1,000ML 1,000 ML IV SCH (08:49)
--- NOTE | 2017-10-19 09:09 | PHYS DOC ---
Past History Past Medical History: Anxiety, Depression, GERD, Hypertension, Other Past Surgical History: Other Smoking: Non-smoker, Quit Greater Than 1 Year Additional Smoking Information: quit 2 years ago Alcohol Use: Rarely Drug Use: Marijuana Social History Narrative: no recent use Adult General Chief Complaint Chief Complaint: Palpitations HPI HPI Patient is a 46 year old male who presents with complaint of palpitations. Patient states that he has been waking up in the morning the past 3 days "feeling my heart beat." The patient denies any associated pain. Patient states however he has been having lightheadedness and feeling generalized weakness. Patient denies any associated fever. The patient maintains that he has not felt well over the past 3 days. Patient states that he was seen on September 26, 2017 after he was not feeling well for the last 2 weeks prior. Patient was found to have low potassium at that time. Patient states since that visit he has been taking a potassium supplement which started to help make him feel better, however he states over the last 3 days he has started to feel worse. The patient is concerned that he may have taken too much potassium which may be affecting his current symptoms. Patient denies abdominal pain or diarrhea. Patient does have nausea currently. Review of Systems Review of Systems Constitutional: Lightheadedness, denies fever or chills [] Eyes: Denies change in visual acuity, redness, or eye pain [] HENT: Sore throat, denies nasal congestion[] Respiratory: Denies cough or shortness of breath [] Cardiovascular: Palpitations, denies chest pain or edema[] GI: Denies abdominal pain, nausea, vomiting, bloody stools or diarrhea [] : Denies dysuria or hematuria [] Musculoskeletal: Denies back pain or joint pain [] Integument: Denies rash or skin lesions [] Neurologic: Denies headache, focal weakness or sensory changes [] All other systems were reviewed and found to be within normal limits, except as documented in this note. Current Medications Current Medications Current Medications Medications (Trade) Dose Ordered Sig/Laquita Start Time Stop Time Status Last Admin Dose Admin Famotidine (Pepcid Vial) 20 mg 1X ONCE 10/19/17 19:15 10/19/17 19:16 Ondansetron HCl (Zofran) 4 mg 1X ONCE 10/19/17 09:15 10/19/17 09:16 Sodium Chloride 1,000 ml @ 1,000 mls/hr Q1H 10/19/17 08:49 10/19/17 09:48 Allergies Allergies Allergies Coded Allergies Type Severity Reaction Last Updated Verified No Known Drug Allergies 06/25/14 No Physical Exam Physical Exam Constitutional: Alert, afebrile, appears in mild discomfort. [] HENT: Normocephalic, atraumatic, bilateral external ears normal, oropharynx erythematous, no oral exudates, nose normal. [] Eyes: PERRLA, EOMI, conjunctiva normal, no discharge. [] Neck: Normal range of motion, no tenderness, supple, no stridor. [] Cardiovascular: Tachycardia, regular rhythm, no murmur [] Lungs & Thorax: Bilateral breath sounds clear to auscultation [] Abdomen: Bowel sounds normal, soft, no tenderness, no masses, no pulsatile masses. [] Skin: Warm, dry, no erythema, no rash. [] Back: No tenderness, no CVA tenderness. [] Extremities: No tenderness, no cyanosis, no clubbing, ROM intact, no edema. [] Neurologic: Alert and oriented X 3, normal motor function, normal sensory function, no focal deficits noted. [] Current Patient Data Vital Signs Vital Signs Date Time Temp Pulse Resp B/P (MAP) Pulse Ox O2 Delivery O2 Flow Rate FiO2 10/19/17 08:10 97.6 86 10 96 Room Air EKG EKG Interpreted by me: Heart rate 99[] Radiology/Procedures Radiology/Procedures not performed[] Course & Med Decision Making Course & Med Decision Making Pertinent Labs and Imaging studies reviewed. (See chart for details) Patient was given IV fluids, Zofran, and Pepcid in the emergency department. Rapid strep test was negative. The patient's symptoms have improved after treatment. Patient's blood work shows mild hypokalemia but no other significant findings. After further discussion, the patient states that he has been under a significant amount of stress as his father's birthday is coming up next month. He states that his father suddenly 3 years ago while at home. Patient states that this was a very traumatic experience and has caused him to have continued problems with sleeping as well as anxiety. The patient states he initially sought follow-up treatment through the [facility] for talk therapy but states that he has not been there in a long time. This may be affecting the patient's current symptoms at this time. I recommended that the patient continue with oral hydration and recommended good oral intake. Patient was provided with a list of clinics for primary care follow-up. Patient showed no evidence of palpitations on today's evaluation, however I will refer the patient to Dr. Villa of cardiology for follow-up in one week for reevaluation. Advised return emergency department for any worsening symptoms. Patient voiced understanding and in agreement with treatment plan. Dragon Disclaimer Dragon Disclaimer This electronic medical record was generated, in whole or in part, using a voice recognition dictation system. Departure Departure: Impression: Primary Impression: Fatigue Additional Impressions: Hypokalemia Palpitations Disposition: HOME, SELF-CARE Condition: IMPROVED Referrals: LUI JAIN (PCP) AVANI VILLA MD Patient Instructions: Fatigue, Palpitations, Stress Additional Instructions: Follow-up he primary doctor in 2-3 days for reevaluation. Follow-up in one week with Dr. Villa of cardiology for re-evaluation. Return to the emergency department for any worsening symptoms. Problem Qualifiers Primary Impression: Fatigue Fatigue type: unspecified Qualified Codes: R53.83 - Other fatigue KARAN FRAGOSO MD Oct 19, 2017 09:09
[2017-10-19] MEDS ORDERED: ONDANSETRON PF 4 MG/2 ML VIAL. IV ONE (09:15)
[2017-10-19] MEDS ORDERED: FAMOTIDINE 20 MG/2 ML VIAL ONE (09:24)
[2017-10-19 09:30] LABS: BASO % 1 % (0-3); EOS # 0.1 x10^3/uL (0.0-0.7); EOS % 1 % (0-3); HEMATOCRIT 48.3 % (39.0-53.0); HEMOGLOBIN 16.6 g/dL (13.0-17.5); LYMPH # 2.5 x10^3/uL (1.0-4.8); LYMPH % 29 % (24-48); MEAN CORPUSCULAR HEMOGLOBIN 30 pg (25-35); MEAN CORPUSCULAR HGB CONC 34 g/dL (31-37); MEAN CORPUSCULAR VOLUME 88 fL (79-100); MONO # 0.7 x10^3/uL (0.0-1.1); MONO % 8 % (0-9); NEUT # 5.1 x10^3uL (1.8-7.7); NEUT % 61 % (31-73); PLATELET COUNT 296 x10^3/uL (140-400); RED BLOOD COUNT 5.51 x10^6/uL (4.30-5.70); RED CELL DISTRIBUTION WIDTH 13.3 % (11.5-14.5); WHITE BLOOD COUNT 8.4 x10^3/uL (4.0-11.0)
[2017-10-19 09:37] LABS: AMPHETAMINE/METHAMPHETAMINE NEG (NEG); BARBITURATES NEG (NEG); BENZODIAZEPINES NEG (NEG); CANNABINOIDS POS (NEG); COCAINE NEG (NEG); METHADONE NEG (NEG); OPIATES NEG (NEG); PHENCYCLIDINE NEG (NEG)
[2017-10-19 09:40] LABS: BACTERIA,URINE 0 /HPF (0-FEW); BILIRUBIN,URINE NEG (NEG); CLARITY,URINE CLEAR; COLOR,URINE YELLOW; GLUCOSE,URINE NEG (NEG); NITRITE,URINE NEG (NEG); RBC,URINE 0 /HPF (0-2); UROBILINOGEN,URINE 0.2 mg/dL (0.2 mg/dL); WBC,URINE 0 /HPF (0-4)
[2017-10-19 09:54] LABS: ALBUMIN 4.3 g/dL (3.4-5.0); ALBUMIN/GLOBULIN RATIO 1.2 (1.0-1.7); CALCIUM 9.6 mg/dL (8.5-10.1); GFR 81.2; POTASSIUM 3.3 mmol/L (3.5-5.1); TOTAL BILIRUBIN 0.4 mg/dL (0.2-1.0); TOTAL PROTEIN 7.9 g/dL (6.4-8.2)
[2017-10-19 10:25] VITALS: BP 129/75
--- NOTE | 2017-10-19 14:14 | EKG ---
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
[2017-10-19] MEDS ORDERED: FAMOTIDINE 20 MG/2 ML VIAL IVP ONE (19:15)
== END 2017-10-19 10:25 | disposition home or self-care (01) ==
LOC: ER 08:08
DX: E87.6 Hypokalemia (principal); R00.2 Palpitations; R53.83 Other fatigue; J02.9 Acute pharyngitis, unspecified; K21.9 Gastro-esophageal reflux disease without esophagitis; I10 Essential (primary) hypertension; F41.9 Anxiety disorder, unspecified; F32.9 Major depressive disorder, single episode, unspecified; F12.10 Cannabis abuse, uncomplicated; Z87.891 Personal history of nicotine dependence
CPT/HCPCS: 36415; 80053; 80307; 81001; 83690; 85025; 87070; 87880; 93005; 96361; 96374; 96375; 99285; J2405; S0028; G0479; J7030

== ENCOUNTER 2017-10-22 23:59 | Emergency (ER) | payer MEDICAID ==
[~2017-10-22] VITALS: Ht 188 cm; Wt 85.7 kg
[2017-10-23] MEDS ORDERED: ASPIRIN 81 MG TAB.CHEW ONE (00:05)
--- NOTE | 2017-10-23 00:12 | PHYS DOC ---
Past History Past Medical History: Anxiety, Depression, GERD, Hypertension, Other Past Surgical History: Other Smoking: Non-smoker, Quit Greater Than 1 Year Alcohol Use: Rarely Drug Use: Marijuana Adult General Chief Complaint Chief Complaint: CHEST PAIN HPI HPI Patient is a 46 year old male who presents with palpitations. He states he was watching TV at home at 2100 PM "when my ex- came in and made me mad." He feels sharp chest pain. He has been here 09/26/17 for fatigue and hypokalemia and again 10/19/17 with palpitations with negative drug screen;neg strep and K 3.3. His father 3 years ago of a heart attack so he is worried about heart disease .He did quit Tobacco. Review of Systems Review of Systems Constitutional: Denies fever or chills Eyes: Denies change in visual acuity, redness, or eye pain HENT: Denies nasal congestion or sore throat Respiratory: Denies cough or shortness of breath Cardiovascular: POS chest pain and palpitations GI: Denies abdominal pain, nausea, vomiting, bloody stools or diarrhea : Denies dysuria or hematuria Musculoskeletal: Denies back pain or joint pain Integument: Denies rash or skin lesions Neurologic: Denies headache, focal weakness or sensory changes All other systems were reviewed and found to be within normal limits, except as documented in this note. Current Medications Current Medications Current Medications Medications (Trade) Dose Ordered Sig/Laquita Start Time Stop Time Status Last Admin Dose Admin Aspirin (Children'S Aspirin) 81 mg STK-MED ONCE 10/23/17 00:05 10/23/17 00:06 NV Allergies Allergies Allergies Coded Allergies Type Severity Reaction Last Updated Verified No Known Drug Allergies 06/25/14 No Physical Exam Physical Exam Constitutional: Well developed, well nourished, no acute distress, non-toxic appearance. HENT: Normocephalic, atraumatic, bilateral external ears normal, oropharynx moist, no oral exudates, nose normal. Eyes: PERRLA, EOMI, conjunctiva normal, no discharge. Neck: Normal range of motion, no tenderness, supple, no stridor. Cardiovascular:Heart rate regular rhythm, no murmur Lungs & Thorax: Bilateral breath sounds clear to auscultation Abdomen: Bowel sounds normal, soft, no tenderness, no masses, no pulsatile masses. Skin: Warm, dry, no erythema, no rash. Back: No tenderness, no CVA tenderness. Extremities: No tenderness, no cyanosis, no clubbing, ROM intact, no edema. Neurologic: Alert and oriented X 3, normal motor function, normal sensory function, no focal deficits noted. Psychologic: Affect normal, judgement normal, mood normal. Current Patient Data Vital Signs T 98.2, P 74, sat 99%, BP 162/97 Lab Results Laboratory Tests Test 10/23/17 00:15 White Blood Count 9.5 x10^3/uL (4.0-11.0) Red Blood Count 5.30 x10^6/uL (4.30-5.70) Hemoglobin 15.8 g/dL (13.0-17.5) Hematocrit 46.4 % (39.0-53.0) Mean Corpuscular Volume 88 fL (79-100) Mean Corpuscular Hemoglobin 30 pg (25-35) Mean Corpuscular Hemoglobin Concent 34 g/dL (31-37) Red Cell Distribution Width 13.4 % (11.5-14.5) Platelet Count 331 x10^3/uL (140-400) Neutrophils (%) (Auto) 57 % (31-73) Lymphocytes (%) (Auto) 34 % (24-48) Monocytes (%) (Auto) 7 % (0-9) Eosinophils (%) (Auto) 1 % (0-3) Basophils (%) (Auto) 1 % (0-3) Neutrophils # (Auto) 5.4 x10^3uL (1.8-7.7) Lymphocytes # (Auto) 3.2 x10^3/uL (1.0-4.8) Monocytes # (Auto) 0.6 x10^3/uL (0.0-1.1) Eosinophils # (Auto) 0.1 x10^3/uL (0.0-0.7) Basophils # (Auto) 0.1 x10^3/uL (0.0-0.2) Sodium Level 142 mmol/L (136-145) Potassium Level 3.8 mmol/L (3.5-5.1) Chloride Level 104 mmol/L (98-107) Carbon Dioxide Level 25 mmol/L (21-32) Anion Gap 13 (6-14) Blood Urea Nitrogen 9 mg/dL (8-26) Creatinine 0.9 mg/dL (0.7-1.3) Estimated GFR (Cockcroft-Gault) 91.7 BUN/Creatinine Ratio 10 (6-20) Glucose Level 118 mg/dL (70-99) Calcium Level 9.5 mg/dL (8.5-10.1) Total Bilirubin mg/dL (0.2-1.0) Aspartate Amino Transf (AST/SGOT) 19 U/L (15-37) Alanine Aminotransferase (ALT/SGPT) 24 U/L (16-63) Alkaline Phosphatase 88 U/L (46-116) Creatine Kinase 83 U/L (39-308) Creatine Kinase MB (Mass) < 0.5 ng/mL (0.0-3.6) Creatine Kinase MB Relative Index 0.6 % (0-4) Troponin I Quantitative < 0.017 ng/mL (0-0.055) IN-Zzv-H-Type Natriuretic Peptide 36 pg/mL (0-124) Total Protein 8.1 g/dL (6.4-8.2) Albumin 4.3 g/dL (3.4-5.0) Albumin/Globulin Ratio 1.1 (1.0-1.7) Lipase 139 U/L (73-393) Urine Opiates Screen Neg (NEG) Urine Methadone Screen Neg (NEG) Urine Barbiturates Neg (NEG) Urine Phencyclidine Screen Neg (NEG) Urine Amphetamine/Methamphetamine Neg (NEG) Urine Benzodiazepines Screen Neg (NEG) Urine Cocaine Screen Neg (NEG) Urine Cannabinoids Screen Pos (NEG) Urine Ethyl Alcohol Neg (NEG) EKG EKG EKG interpreted by myself at 0006 AM with NSR, rate 79, no acute ST changes. No STEMI Course & Med Decision Making Course & Med Decision Making Evaluated patient and reviewed recent visits. He is very anxious here. Will verify his cardiac enzymes. he does have underlying hypertension does take medications.At 0200 am: BP 138/82, P 65, sat 98%. Chemistries are still pending due to lab difficulty. Trop is normal however. Patient now resting. LENNIE score for NSTEMI: Age 65: No=0; Yes=1 3 CAD risk factors: Family history of CAD, hypertension, hypercholesterolemia, diabetes, family history of CAD, or current smoker: No=0; Yes=1 Known CAD (stenosis 50%: No=0; Yes=1 ASA use in past 7 days: No=0; Yes=1 Severe angina ( 2 episodes in 24 hrs): No=0; Yes=[address] changes 0.5m: No=0; Yes=1 Positive cardiac marker: No=0; Yes=1 Score: 1 MACE Scoring: History: Highly suspicious (2 points); Moderately suspicious (1 point). Slightly suspicious (0 point). EKG: ST segment depression (2 points). Nonspecific repolarization disturbance ( 1 point). normal (0 point) Age: Greater than 65 (2 points), 65-45 (1 point); less than 45 years old (0 points). Risk factors:> 3 risk factors (2 points), 1-2 risk factors (one point), no risk factors (0 point). Troponin: > 2 times normal (2 points), 1-2 times normal (1 point) normal limits (0 point) Total score: ___1___ Score % pts MACE/n MACE Policy 0-3: 32% 1.9% 0.05% Discharge 4-6: 51% 413/3136 13% 1.3% Observation Risk management 7-10: 17% 518/1045 50% 2.8% Observation Treatment, CAGb Dragon Disclaimer Dragon Disclaimer This electronic medical record was generated, in whole or in part, using a voice recognition dictation system. Departure Departure: Impression: Primary Impression: Palpitations Additional Impression: Anxiety Disposition: 01 HOME, SELF-CARE Condition: STABLE Referrals: LUI JAIN (PCP) Patient Instructions: Anxiety and Panic Attacks Additional Instructions: YOUR LAB WAS NORMAL HERE. CONTACT [facility] FOR HELP WITH YOUR ANXIETY Problem Qualifiers KHOI CHAVEZ MD Oct 23, 2017 00:12
[2017-10-23 00:45] LABS: BASO # 0.1 x10^3/uL (0.0-0.2); BASO % 1 % (0-3); EOS # 0.1 x10^3/uL (0.0-0.7); EOS % 1 % (0-3); HEMATOCRIT 46.4 % (39.0-53.0); HEMOGLOBIN 15.8 g/dL (13.0-17.5); LYMPH # 3.2 x10^3/uL (1.0-4.8); LYMPH % 34 % (24-48); MEAN CORPUSCULAR HEMOGLOBIN 30 pg (25-35); MEAN CORPUSCULAR HGB CONC 34 g/dL (31-37); MEAN CORPUSCULAR VOLUME 88 fL (79-100); MONO # 0.6 x10^3/uL (0.0-1.1); MONO % 7 % (0-9); NEUT # 5.4 x10^3uL (1.8-7.7); NEUT % 57 % (31-73); PLATELET COUNT 331 x10^3/uL (140-400); RED CELL DISTRIBUTION WIDTH 13.4 % (11.5-14.5); WHITE BLOOD COUNT 9.5 x10^3/uL (4.0-11.0)
[2017-10-23 00:46] LABS: BARBITURATES NEG (NEG); BENZODIAZEPINES NEG (NEG); CANNABINOIDS POS (NEG); COCAINE NEG (NEG); METHADONE NEG (NEG); OPIATES NEG (NEG); PHENCYCLIDINE NEG (NEG)
[2017-10-23 00:49] LABS: AMPHETAMINE/METHAMPHETAMINE NEG (NEG)
[2017-10-23] MEDS ORDERED: ASPIRIN 81 MG TAB.CHEW PO ONE (01:00)
[2017-10-23 01:31] LABS: ALBUMIN 4.3 g/dL (3.4-5.0); ALBUMIN/GLOBULIN RATIO 1.1 (1.0-1.7); ALK PHOS 88 U/L (46-116); BLOOD UREA NITROGEN 9 mg/dL (8-26); BUN/CREATININE RATIO 10 (6-20); CREATININE 0.9 mg/dL (0.7-1.3); GFR 91.7; GLUCOSE 118 mg/dL (70-99); LIPASE 139 U/L (73-393); TOTAL PROTEIN 8.1 g/dL (6.4-8.2)
[2017-10-23 02:01] LABS: ALT (SGPT) 24 U/L (16-63); ANION GAP 13 (6-14); AST (SGOT) 19 U/L (15-37); CALCIUM 9.5 mg/dL (8.5-10.1); CARBON DIOXIDE 25 mmol/L (21-32); CHLORIDE 104 mmol/L (98-107); CREATINE KINASE 83 U/L (39-308); SODIUM 142 mmol/L (136-145)
[2017-10-23 02:12] LABS: POTASSIUM 3.8 mmol/L (3.5-5.1)
[2017-10-23 02:26] VITALS: BP 143/74
[2017-10-23] MEDS ORDERED: ACETAMINOPHEN 500 MG TABLET PO ONE ×2 (02:30→02:41)
--- NOTE | 2017-10-23 02:46 | EKG ---
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
== END 2017-10-23 02:44 | disposition home or self-care (01) ==
LOC: ER 23:59
DX: F41.9 Anxiety disorder, unspecified (principal); K21.9 Gastro-esophageal reflux disease without esophagitis; I10 Essential (primary) hypertension; F12.10 Cannabis abuse, uncomplicated; F32.9 Major depressive disorder, single episode, unspecified; Z87.891 Personal history of nicotine dependence
CPT/HCPCS: 36415; 80053; 80307; 82553; 83690; 83880; 84484; 85025; 93005; 99285-25; G0479

== ENCOUNTER 2017-12-19 13:53 | Emergency (ER) | payer MEDICAID ==
[~2017-12-19] VITALS: Ht 188 cm; Wt 85.7 kg
[~2017-12-19 13:53] MED LIST changes: +NAPR-514 PO; -NAPR500T4 PO
[2017-12-19] MEDS ORDERED: ONDA4TAB10 PO (14:43)
[2017-12-19] MEDS ORDERED: DICY20TA3 PO (14:43)
[2017-12-19] MEDS ORDERED: DICYCLOMINE HCL 20 MG TABLET PO ONE (14:45)
[2017-12-19] MEDS ORDERED: ONDANSETRON ODT 4 MG TAB.RAPDIS PO ONE (14:45)
--- NOTE | 2017-12-19 14:46 | PHYS DOC ---
General Chief Complaint: N/V/D Stated Complaint: ABDONMINAL PAIN Time Seen by MD: 14:41 Source: patient Exam Limitations: no limitations Problems: History of Present Illness Initial Comments 47-year-old male comes to the ED complaining of nausea vomiting and diarrhea. Patient states that 2 days ago he developed intermittent generalized abdominal cramping relieved with vomiting or bowel movement. States he had several episodes of vomiting on the first day, now he's had multiple loose watery stools daily since symptoms began. He denies any focal localized abdominal discomfort. Pain is not relieved or made worse by by mouth intake however he fears vomiting should he eat. He's had some myalgias no measured fevers no blood noted in stools or emesis. Denies travel or bad food exposure. States symptoms are similar to prior episodes of gastroenteritis. Timing/Duration: other Severity: moderate Modifying Factors: worse with eating Associated Symptoms: nausea/vomiting, other Allergies: Coded Allergies: No Known Drug Allergies (Unverified , 06/25/14) Past Medical History Medical History: other (pancreatitis, anxiety, depression, GERD, hypertension) Surgical History: noncontributory, other (cervical fusion) Social History Smoker: quit greater than 1 year Alcohol: none Drugs: marijuana Review of Systems Constitutional: denies fever, malaise Respiratory: denies cough, denies shortness of breath, denies wheezing Cardiovascular: denies chest pain, denies palpitations, denies syncope Gastrointestinal: see HPI Genitourinary: denies dysuria, denies frequency, denies hematuria Musculoskeletal: denies back pain, denies joint pain, denies neck pain Psychiatric/Neurological: denies headache, denies numbness, denies paresthesia Hematologic/Lymphatic: denies blood clots, denies easy bleeding, denies easy bruising Physical Exam General Appearance: no apparent distress Ear, Nose, Throat: hearing grossly normal, normal ENT inspection, normal pharynx Neck: non-tender, supple Respiratory: normal breath sounds, no respiratory distress Cardiovascular: normal peripheral pulses, regular rate, rhythm Gastrointestinal: normal bowel sounds, soft (nondistended, negative Man negative McBurney, mild abdominal muscle tenderness noted) Back: no CVA tenderness, no vertebral tenderness Extremities: non-tender, normal inspection 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 I discussed options with the patient, treat with antiemetics and analgesics and discharged home versus remain in ED to evaluate med efficacy and check blood work. Patient would like to try going home agrees to come back if symptoms did not resolve. Departure Time of Disposition: 14:44 Disposition: 01 HOME, SELF-CARE Diagnosis: gastroenteritis likely viral, dehydration Condition: GOOD Patient Instructions: Dehydration, Adult, Axhe-pt-Gcpv, Viral Gastroenteritis, Kcrg-rg-Yolt Additional Instructions: Please review the patient education materials given by ED staff. Aggressive hydration with Gatorade and water. Clear liquids today, advance to bland tomorrow slowly as tolerated. [id number]-izf-irghbxl Tylenol, Pepto-Bismol, and Emelia-Stewart as needed dosing per package instructions. [id number] Pepcid 20 mg twice daily Eat one banana daily. Prescription: Zofran ODT, dicyclomine Cultured yogurt (Danimals) daily to restore normal gut stephon. Follow-up with a doctor in 3-5 days if not better for recheck. Return to ED with new or changing symptoms. GALE [place] DO Dec 19, 2017 14:46
[2017-12-19 14:55] VITALS: BP 167/95
== END 2017-12-19 14:58 | disposition home or self-care (01) ==
LOC: ER 13:53
DX: K52.9 Noninfective gastroenteritis and colitis, unspecified (principal); E86.0 Dehydration; F12.10 Cannabis abuse, uncomplicated; K21.9 Gastro-esophageal reflux disease without esophagitis; I10 Essential (primary) hypertension; Z87.891 Personal history of nicotine dependence
CPT/HCPCS: 99283; Q0162

== ENCOUNTER 2018-01-18 22:07 | Emergency (ER) | payer MEDICAID, OTHER ==
[~2018-01-18] VITALS: Ht 188 cm; Wt 83.8 kg
[~2018-01-18 22:07] MED LIST changes: +DICY20TA3 PO; +ONDA4TAB10 PO
[2018-01-18] MEDS ORDERED: ALPRAZolam 0.25 MG TABLET ONE (22:59)
[2018-01-18] MEDS ORDERED: ASPIRIN 81 MG TAB.CHEW PO ONE (23:00)
[2018-01-18 23:10] LABS: BASO # 0.1 x10^3/uL (0.0-0.2); BASO % 1 % (0-3); EOS % 0 % (0-3); HEMATOCRIT 46.5 % (39.0-53.0); HEMOGLOBIN 15.9 g/dL (13.0-17.5); LYMPH # 2.5 x10^3/uL (1.0-4.8); LYMPH % 30 % (24-48); MEAN CORPUSCULAR HEMOGLOBIN 30 pg (25-35); MEAN CORPUSCULAR HGB CONC 34 g/dL (31-37); MEAN CORPUSCULAR VOLUME 87 fL (79-100); MONO # 0.7 x10^3/uL (0.0-1.1); MONO % 8 % (0-9); NEUT % 61 % (31-73); PLATELET COUNT 303 x10^3/uL (140-400); RED BLOOD COUNT 5.32 x10^6/uL (4.30-5.70); RED CELL DISTRIBUTION WIDTH 13.7 % (11.5-14.5); WHITE BLOOD COUNT 8.3 x10^3/uL (4.0-11.0)
[2018-01-18 23:24] LABS: ALBUMIN 4.4 g/dL (3.4-5.0); ALBUMIN/GLOBULIN RATIO 1.3 (1.0-1.7); CALCIUM 9.5 mg/dL (8.5-10.1); CREATININE 0.9 mg/dL (0.7-1.3); GFR 91.3; POTASSIUM 3.6 mmol/L (3.5-5.1); TOTAL BILIRUBIN 0.6 mg/dL (0.2-1.0); TOTAL PROTEIN 7.9 g/dL (6.4-8.2)
[2018-01-18] MEDS ORDERED: ALPRAZolam 0.25 MG TABLET PO ONE (23:30)
[2018-01-19 00:03] VITALS: BP 140/88
--- NOTE | 2018-01-19 00:03 | PHYS DOC ---
Past History Past Medical History: Anxiety, Depression, GERD, Hypertension, Other Past Surgical History: Other Smoking: Non-smoker, Quit Greater Than 1 Year Alcohol Use: None Drug Use: Marijuana Adult General Chief Complaint Chief Complaint: MULTIPLE COMPLAINTS HPI HPI 47-year-old male with no prior cardiac history and a long history of anxiety with noncardiac chest pain and a negative stress test within the last 2 years. Patient now presents the emergency department with chest pain typical for him. He is not reproducible with movement or palpation. He has no productive cough or fever. No pain with deep inspiration. Patient is very clear that he has no exertional chest pain whatsoever. Patient was a smoker but quit months ago he has no high blood pressure high cholesterol diabetes or family history of coronary artery disease in young age. Review of Systems Review of Systems Constitutional: Denies fever or chills [] Eyes: Denies change in visual acuity, redness, or eye pain [] HENT: Denies nasal congestion or sore throat [] Respiratory: Denies cough or shortness of breath [] Cardiovascular: No additional information not addressed in HPI [] GI: Denies abdominal pain, nausea, vomiting, bloody stools or diarrhea [] : Denies dysuria or hematuria [] Musculoskeletal: Denies back pain or joint pain [] Integument: Denies rash or skin lesions [] Neurologic: Denies headache, focal weakness or sensory changes [] Endocrine: Denies polyuria or polydipsia [] All other systems were reviewed and found to be within normal limits, except as documented in this note. Current Medications Current Medications Current Medications Medications (Trade) Dose Ordered Sig/[facility] Start Time Stop Time Status Last Admin Dose Admin Alprazolam (Xanax) 0.25 mg STK-MED ONCE 01/18/18 22:59 01/18/18 23:00 DC Aspirin (Children'S Aspirin) 324 mg 1X ONCE 01/18/18 23:00 01/18/18 23:01 DC 01/18/18 23:05 324 MG Allergies Allergies Allergies Coded Allergies Type Severity Reaction Last Updated Verified No Known Drug Allergies 06/25/14 No Physical Exam Physical Exam Constitutional: Well developed, well nourished, no acute distress, non-toxic appearance. [] HENT: Normocephalic, atraumatic, bilateral external ears normal, oropharynx moist, no oral exudates, nose normal. [] Eyes: PERRLA, EOMI, conjunctiva normal, no discharge. [] Neck: Normal range of motion, no tenderness, supple, no stridor. [] Cardiovascular:Heart rate regular rhythm, no murmur [] Lungs & Thorax: Bilateral breath sounds clear to auscultation [] Abdomen: Bowel sounds normal, soft, no tenderness, no masses, no pulsatile masses. [] Skin: Warm, dry, no erythema, no rash. [] Back: No tenderness, no CVA tenderness. [] Extremities: No tenderness, no cyanosis, no clubbing, ROM intact, no edema. [] Neurologic: Alert and oriented X 3, normal motor function, normal sensory function, no focal deficits noted. [] Psychologic: anxious affect, judgement normal, mood normal. [] Current Patient Data Lab Results Laboratory Tests Test 01/18/18 22:52 White Blood Count 8.3 x10^3/uL (4.0-11.0) Red Blood Count 5.32 x10^6/uL (4.30-5.70) Hemoglobin 15.9 g/dL (13.0-17.5) Hematocrit 46.5 % (39.0-53.0) Mean Corpuscular Volume 87 fL (79-100) Mean Corpuscular Hemoglobin 30 pg (25-35) Mean Corpuscular Hemoglobin Concent 34 g/dL (31-37) Red Cell Distribution Width 13.7 % (11.5-14.5) Platelet Count 303 x10^3/uL (140-400) Neutrophils (%) (Auto) 61 % (31-73) Lymphocytes (%) (Auto) 30 % (24-48) Monocytes (%) (Auto) 8 % (0-9) Eosinophils (%) (Auto) 0 % (0-3) Basophils (%) (Auto) 1 % (0-3) Neutrophils # (Auto) 5.0 x10^3uL (1.8-7.7) Lymphocytes # (Auto) 2.5 x10^3/uL (1.0-4.8) Monocytes # (Auto) 0.7 x10^3/uL (0.0-1.1) Eosinophils # (Auto) 0.0 x10^3/uL (0.0-0.7) Basophils # (Auto) 0.1 x10^3/uL (0.0-0.2) Sodium Level 138 mmol/L (136-145) Potassium Level 3.6 mmol/L (3.5-5.1) Chloride Level 101 mmol/L (98-107) Carbon Dioxide Level 22 mmol/L (21-32) Anion Gap 15 (6-14) H Blood Urea Nitrogen 9 mg/dL (8-26) Creatinine 0.9 mg/dL (0.7-1.3) Estimated GFR (Cockcroft-Gault) 91.3 BUN/Creatinine Ratio 10 (6-20) Glucose Level 110 mg/dL (70-99) H Calcium Level 9.5 mg/dL (8.5-10.1) Total Bilirubin 0.6 mg/dL (0.2-1.0) Aspartate Amino Transferase (AST) 13 U/L (15-37) L Alanine Aminotransferase (ALT) 19 U/L (16-63) Alkaline Phosphatase 95 U/L (46-116) Troponin I Quantitative < 0.017 ng/mL (0-0.055) Total Protein 7.9 g/dL (6.4-8.2) Albumin 4.4 g/dL (3.4-5.0) Albumin/Globulin Ratio 1.3 (1.0-1.7) EKG EKG EKG with normal sinus rhythm at 74 normal axis no STEMI interpreted by me[] Radiology/Procedures Radiology/Procedures Chest x-ray with chronic changes no acute disease interpreted by me[] Course & Med Decision Making Course & Med Decision Making Pertinent Labs and Imaging studies reviewed. (See chart for details) Signs and symptoms consistent with exacerbation of anxiety as well as chronic recurrent noncardiac chest pain. Full workup pending. Signs and symptoms not at all consistent with ACS pleurisy or PE. Full workup unremarkable. Patient has a very clearly contributory significant anxiety component which is chronic as well. Patient's heart scores 2 with 1. each for age and risk factors. No further workup or treatment is indicated at this time patient agrees with outpatient follow-up and is aware to see the countersinker as primary care physician for reevaluation and to arrange repeat stress testing as needed. Strict return precautions given [] Dragon Disclaimer Dragon Disclaimer This electronic medical record was generated, in whole or in part, using a voice recognition dictation system. Departure Departure: Impression: Primary Impression: Anxiety Additional Impression: Nonspecific chest pain Disposition: HOME, SELF-CARE Condition: GOOD Referrals: PCP,JOVON (PCP) Patient Instructions: Anxiety and Panic Attacks, Chest Pain (Nonspecific) Additional Instructions: You've been experiencing nonspecific chest pain which shows no evidence of being cardiac in nature at this time. This is similar to the noncardiac chest pain that you've been evaluated for previously including her negative stress test within the last 2 years. Your chest x-ray, EKG, and laboratory workup today were all reassuring. It is very clear that your anxiety is contributing to your symptoms today. Take her anxiety medications at home as previously prescribed as needed and follow-up with your doctor tomorrow for reevaluation and referral to cardiology for further workup including repeat stress test as needed. Return immediately for new severe worsening symptoms Problem Qualifiers LOUIS NICHOLS MD Jan 19, 2018 00:03
--- NOTE | 2018-01-19 08:07 | RAD ---
Portable chest, 01/18/2018: History: Chest pain Comparison is made to a study from 09/26/2017. The heart size and pulmonary vascularity are normal. No pulmonary infiltrate is seen. There is no evidence of pleural fluid. IMPRESSION: No acute cardiopulmonary abnormality is detected.
--- NOTE | 2018-01-19 17:14 | EKG ---
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
== END 2018-01-19 00:16 | disposition home or self-care (01) ==
LOC: ER 22:07
DX: F41.9 Anxiety disorder, unspecified (principal); F32.9 Major depressive disorder, single episode, unspecified; K21.9 Gastro-esophageal reflux disease without esophagitis; F12.10 Cannabis abuse, uncomplicated; I10 Essential (primary) hypertension; Z87.891 Personal history of nicotine dependence
CPT/HCPCS: 36415; 71045; 80053; 84484; 85025; 93005; 99285-25

== ENCOUNTER 2018-02-17 10:21 | Emergency (ER) | payer SELFPAY ==
[~2018-02-17] VITALS: Ht 188 cm; Wt 81.6 kg
[~2018-02-17 10:21] MED LIST changes: +RANI150T21 PO; -RANI150T6 PO
--- NOTE | 2018-02-17 10:35 | EKG ---
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
--- NOTE | 2018-02-17 10:50 | PHYS DOC ---
Past History Past Medical History: Anxiety, Depression, GERD, Hypertension, Pancreatitis, Other Past Surgical History: Other Smoking: Non-smoker, Quit Greater Than 1 Year Alcohol Use: None Drug Use: Marijuana Adult General Chief Complaint Chief Complaint: CHEST PAIN [facility] HPI 47-year-old male presents with central back pain and chest pain. The patient woke up this morning about 2 hours ago with some abdominal discomfort and onset of back pain between his shoulder blades that radiated through his chest. He was not doing any physical activity when this started. He describes the pain as a heavy pressure. Pain at its worse was 7 out of 10. He now rates the pain about 5 out of 10. The patient denies shortness of breath or diaphoresis. He has had some mild diaphoresis in the ED, states he tends to get nervous in the hospital. The patient has had some nausea but no vomiting. He has a long history of GERD and that he treats with Zantac daily. The patient also has a strong family history of heart disease. Both his father and an uncle of heart disease before the age 50. The patient has had a stress test in the past that was reportedly negative. This was about 3 years ago. Review of Systems Review of Systems Constitutional: Denies fever or chills [] Eyes: Denies change in visual acuity, redness, or eye pain [] HENT: Denies nasal congestion or sore throat [] Respiratory: Denies cough or shortness of breath [] Cardiovascular: No additional information not addressed in HPI [] GI: Denies abdominal pain, nausea, vomiting, bloody stools [] : Denies dysuria or hematuria [] Musculoskeletal: Denies joint pain [] Integument: Denies rash or skin lesions [] Neurologic: Denies headache, focal weakness or sensory changes [] Endocrine: Denies polyuria or polydipsia [] All other systems were reviewed and found to be within normal limits, except as documented in this note. Allergies Allergies Allergies Coded Allergies Type Severity Reaction Last Updated Verified No Known Drug Allergies 06/25/14 No Physical Exam Physical Exam Constitutional: Well developed, well nourished, no acute distress, non-toxic appearance. [] HENT: Normocephalic, atraumatic, bilateral external ears normal, oropharynx moist, no oral exudates, nose normal. [] Eyes: PERRLA, EOMI, conjunctiva normal, no discharge. [] Neck: Normal range of motion, no tenderness, supple, no stridor. [] Cardiovascular:Heart rate regular rhythm, no murmur [] Lungs & Thorax: Bilateral breath sounds clear to auscultation [] Abdomen: Bowel sounds normal, soft, no tenderness, no masses, no pulsatile masses. [] Skin: Warm, mild diaphoresis, no erythema, no rash. [] Back: No tenderness, no CVA tenderness. [] Extremities: No tenderness, no cyanosis, no clubbing, ROM intact, no edema. [] Neurologic: Alert and oriented X 3, normal motor function, normal sensory function, no focal deficits noted. [] Psychologic: Affect normal, judgement normal, mood normal. [] EKG EKG [] Radiology/Procedures Radiology/Procedures Exam: AP portable chest History: Chest pain. Comparison: January 18, 2018. Findings: The heart and mediastinal structures are within normal limits for size. Lungs are without infiltrate. No pleural effusion or pneumothorax is identified. Lower cervical spine demonstrates spinal fusion hardware. Impression: 1. No acute cardiopulmonary process. Electronically signed by: Leander Doshi MD (02/17/2018 10:53 AM) [facility][] Course & Med Decision Making Course & Med Decision Making Pertinent Labs and Imaging studies reviewed. (See chart for details) The patient was given 324 aspirin on arrival. Patient's chest x-ray is unremarkable. His EKG is unremarkable. His labs were unremarkable. His troponin is negative. I will treat him with a GI cocktail to see if this improves his symptoms. The patient's symptoms did improve during his stay in the ED. I have advised that he follow-up with his PCP to consider gallbladder disease as well as uncontrolled GERD. His symptoms do not appear to be cardiac in nature. Given his symptoms recur or worsen he'll return to the ED. [] Dragon Disclaimer Dragon Disclaimer This electronic medical record was generated, in whole or in part, using a voice recognition dictation system. Departure Departure: Referrals: JOVON MONTALVO (PCP) MAURIZIO OLSON DO February 17, 2018 10:50
[2018-02-17 10:55] LABS: CALCIUM 9.5 mg/dL (8.5-10.1); GFR 80.8; POTASSIUM 3.8 mmol/L (3.5-5.1)
[2018-02-17 10:56] LABS: BASO # 0.1 x10^3/uL (0.0-0.2); BASO % 1 % (0-3); EOS # 0.1 x10^3/uL (0.0-0.7); EOS % 1 % (0-3); HEMATOCRIT 50.3 % (39.0-53.0); HEMOGLOBIN 17.4 g/dL (13.0-17.5); LYMPH # 2.6 x10^3/uL (1.0-4.8); LYMPH % 36 % (24-48); MEAN CORPUSCULAR HEMOGLOBIN 30 pg (25-35); MEAN CORPUSCULAR HGB CONC 35 g/dL (31-37); MEAN CORPUSCULAR VOLUME 88 fL (79-100); MONO # 0.5 x10^3/uL (0.0-1.1); MONO % 7 % (0-9); NEUT % 55 % (31-73); PLATELET COUNT 347 x10^3/uL (140-400); RED BLOOD COUNT 5.74 x10^6/uL (4.30-5.70); RED CELL DISTRIBUTION WIDTH 13.4 % (11.5-14.5); WHITE BLOOD COUNT 7.3 x10^3/uL (4.0-11.0)
--- NOTE | 2018-02-17 10:57 | RAD ---
Exam: AP portable chest History: Chest pain. Comparison: January 18, 2018. Findings: The heart and mediastinal structures are within normal limits for size. Lungs are without infiltrate. No pleural effusion or pneumothorax is identified. Lower cervical spine demonstrates spinal fusion hardware. Impression: 1. No acute cardiopulmonary process. Electronically signed by: Leander Doshi MD (02/17/2018 10:53 AM) [id number]
[2018-02-17] MEDS ORDERED: ASPIRIN 81 MG TAB.CHEW PO ONE (11:15)
[2018-02-17] MEDS ORDERED: LIDO:MAALOX 1:1 20 ML SINGLE DOSE. PO ONE (12:45)
[2018-02-17 12:50] VITALS: BP 128/90
== END 2018-02-17 12:56 | disposition home or self-care (01) ==
LOC: ER 10:21
DX: M54.89 Other dorsalgia (principal); R07.89 Other chest pain; R61 Generalized hyperhidrosis; F41.9 Anxiety disorder, unspecified; F32.9 Major depressive disorder, single episode, unspecified; K21.9 Gastro-esophageal reflux disease without esophagitis; I10 Essential (primary) hypertension; F12.10 Cannabis abuse, uncomplicated; Z87.891 Personal history of nicotine dependence
CPT/HCPCS: 36415; 71045; 80048; 84484; 85025; 93005; 99285-25

== ENCOUNTER 2019-01-14 09:33 | Emergency (ER) | payer SELFPAY ==
[~2019-01-14] VITALS: Ht 188 cm; Wt 83.8 kg
[2019-01-14 10:02] VITALS: BP 123/68
[2019-01-14] MEDS ORDERED: MELO7.5T29 PO (10:05)
--- NOTE | 2019-01-14 10:06 | PHYS DOC ---
Past History Past Medical History: Anxiety, High Cholesterol, Hypertension Past Surgical History: No Surgical History Smoking: Non-smoker, Quit Greater Than 1 Year Alcohol Use: Occasionally Drug Use: Marijuana Adult General Chief Complaint Chief Complaint: LACERATION/AVULSION HPI HPI Patient is a 48-year-old male who presents with left middle finger pain/ laceration. Patient and his sleep punched his night stand approximately 15 minutes prior to arrival. Patient is right-hand dominant. No numbness, tingling , nor paresthesia. Bleeding was controlled with pressure. Patient is uncertain as to when his last tetanus vaccine was.[] Review of Systems Review of Systems Constitutional: Denies fever or chills [] Eyes: Denies change in visual acuity, redness, or eye pain [] HENT: Denies nasal congestion or sore throat [] Respiratory: Denies cough or shortness of breath [] Cardiovascular: No chest pain or palpitations[] GI: Denies abdominal pain, nausea, vomiting, bloody stools or diarrhea [] : Denies dysuria or hematuria [] Musculoskeletal: Denies back pain or joint pain [] Integument: Denies rash or skin lesions [] Neurologic: Denies headache, focal weakness or sensory changes [] Endocrine: Denies polyuria or polydipsia [] All other systems were reviewed and found to be within normal limits, except as documented in this note. Current Medications Current Medications Current Medications Medications (Trade) Dose Ordered Sig/Laquita Start Time Stop Time Status Last Admin Dose Admin Diphtheria/ Tetanus/Acell Pertussis (Boostrix) 0.5 ml ONCE ONCE 01/14/19 10:15 01/14/19 10:16 Allergies Allergies Allergies Coded Allergies Type Severity Reaction Last Updated Verified No Known Drug Allergies 06/25/14 No Physical Exam Physical Exam Constitutional: Well developed, well nourished, no acute distress, non-toxic appearance. [] HENT: Normocephalic, atraumatic, bilateral external ears normal, oropharynx moist, no oral exudates, nose normal. [] Eyes: PERRLA, EOMI, conjunctiva normal, no discharge. [] Neck: Normal range of motion, no tenderness, supple, no stridor. [] Cardiovascular:Heart rate regular rhythm, no murmur [] Lungs & Thorax: Bilateral breath sounds clear to auscultation [] Abdomen: Not examined[] Skin: Warm, dry, no erythema, no rash. 1 cm laceration left long finger, proximal phalanx, transverse, dorsal aspect. FDS, FDP, and extensor mechanisms are intact, no pain with axial loading. 2 point discrimination less than 5 mm. [ ] Back: No tenderness, no CVA tenderness. [] Extremities: No tenderness, no cyanosis, no clubbing, ROM intact, no edema. [] Neurologic: Alert and oriented X 3, normal motor function, normal sensory function, no focal deficits noted. [] Psychologic: Affect normal, judgement normal, mood normal. [] Current Patient Data Vital Signs Vital Signs Date Time Temp Pulse Resp B/P (MAP) Pulse Ox O2 Delivery O2 Flow Rate FiO2 01/14/19 09:43 65 22 100 Room Air EKG EKG [] Radiology/Procedures Radiology/Procedures [] Course & Med Decision Making Course & Med Decision Making Pertinent Labs and Imaging studies reviewed. (See chart for details) ED course: Patient arrived, was placed in bed, and tolerated exam well. The laceration was repaired per the repair note. Hemostasis was achieved. Patient was neurovascularly intact after splint was applied. He was discharged in improved condition. Medical decision making: There is no evidence of a fracture, dislocation, nor significant ligamentous nor neurovascular compromise.[] Dragon Disclaimer Dragon Disclaimer This electronic medical record was generated, in whole or in part, using a voice recognition dictation system. Departure Departure: Impression: Primary Impression: Finger laceration Disposition: 01 HOME, SELF-CARE Condition: IMPROVED Referrals: PCP,NO (PCP) Patient Instructions: Sterile Tape Wound Closure Additional Instructions: Follow-up with your regular doctor in 2 days for a wound check. If you do not have a regular doctor, a list of local clinics will be provided for you. Return to the ER if worsening pain, purulent drainage, or any other concerns. Scripts Meloxicam (MELOXICAM) 7.5 Mg Tablet 7.5 MG PO DAILY for PAIN, #20 TAB Prov: PATSY FRANCOIS DO 01/14/19 Laceration Repair Lac Repair Indication: Left middle finger laceration[] Procedure: The patient was placed in the appropriate position and the area was then cleansed. The laceration was closed with Steri-Strips and skin glue. The wound area was then dressed and a splint applied. Total repaired wound length: 1 cm. Other Items: None The patient tolerated the procedure well and hemostasis was achieved. Complications: None. Problem Qualifiers Primary Impression: Finger laceration Encounter type: initial encounter Finger: middle finger Damage to nail status: without damage Foreign body presence: without foreign body Laterality: left Qualified Codes: S61.213A - Laceration without foreign body of left middle finger without damage to nail, initial encounter PATSY FRANCOIS DO Jan 14, 2019 10:06
[2019-01-14] MEDS ORDERED: DIPHTH,PERTUSS(ACELL),TET TOX 0.5 ML DISP.SYRIN. VAX IM ONE (10:15)
== END 2019-01-14 10:30 | disposition home or self-care (01) ==
LOC: ER 09:33
DX: S61.213A Laceration without foreign body of left middle finger without damage to nail, initial encounter (principal); F41.9 Anxiety disorder, unspecified; E78.00 Pure hypercholesterolemia, unspecified; I10 Essential (primary) hypertension; Z87.891 Personal history of nicotine dependence; W22.8XXA Striking against or struck by other objects, initial encounter; Y93.89 Activity, other specified; Y92.89 Other specified places as the place of occurrence of the external cause; Y99.8 Other external cause status
CPT/HCPCS: 12001; 90471; 90715; 99283